=== PATIENT | female | born 1980 | race Caucasian/White ===

== ENCOUNTER 2017-04-04 12:03 | Emergency (ER) | payer OTHER ==
[~2017-04-04] VITALS: Ht 160 cm; Wt 67.6 kg
[2017-04-04 12:20] VITALS: Ht 160 cm; Wt 67.6 kg
[2017-04-04 13:59] VITALS: BP 123/80
== END 2017-04-04 13:59 | disposition home or self-care (01) ==
LOC: ED 12:03
DX: G43.909 Migraine, unspecified, not intractable, without status migrainosus (principal); H10.9 Unspecified conjunctivitis